=== PATIENT | female | born 1970 | race Caucasian/White ===

== ENCOUNTER 2016-08-10 08:46 | Emergency (ER) | payer BC ==
[2016-08-10] MEDS ORDERED: Ondansetron INJ* 2 MG/ML VIAL IV ONE (09:26)
[2016-08-10] MEDS ORDERED: Ketorolac INJ* 30 MG/ML 1 ML VIAL IV ONE (09:26)
[2016-08-10] MEDS ORDERED: NS 0.9% 1000 ML* 1,000 ML IV ONE (09:26)
--- NOTE | 2016-08-10 09:45 | ED ---
Abdominal Pain/Female - HPI Summary HPI Summary: 46 female presents today with complains of abdominal pain, constipation and feeling ill that began last Wednesday08/03/16. Patient has a history of diverticulitis and was experiencing pain and fevers of 102F last week at onset. 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 She has been taking cipro/flagyl and her last dose of this is tomorrow. Since then she has been trying to continue daily activities, work and take care of her kids while still feeling ill. She has not had a bowel movement since 08/03/16 that she describes as very small "like stones". Her last normal bowel movement before that was approximately 15 days ago. Denies any blood in stool or vomit. She has been vomiting however last episode was Wednesday08/07/16. She has tried using prune juice, prunes, watching her diet, glycerin suppositories without relief. She states she does not even have the urge or pressure to have a bowel movement. She does admit to feeling distended. Majority of her pain is on the right mid abdomen. She realized yesterday the pain began to radiate into her right flank/back. She also has been experiencing urinary frequency and urgency that began yesterday that she took azo urinary relief tabs for, complaining it turned her urine an orange color. Fever today of 100.2F and she took oxycodone this morning around 7am that she is prescribed for her knee without much relief. States she is worried because she has not had any improvement. Admits to passing gas today. Laying in the position and using heating pads gives her some relief. PMHx significant for diverticulitis, hernia repair, cholecystectomy and GERD. Denies difficulty breathing, chest pain and headache. Denies genitalia symptoms, chest pain and difficulty breathing. - History of Current Complaint Chief Complaint: EDAbdPain Stated Complaint: 15DAYS W/OUT BOWEL MOVEMENT Time Seen by Provider: 08/10/16 09:02 Hx Obtained From: Patient Hx Last Menstrual Period: 08/29/14 ?: No Onset/Duration: Gradual Onset, Lasting Weeks, Worse Since Timing: Constant Severity Initially: Moderate Severity Currently: Moderate Pain Intensity: 7 Pain Scale Used: 0-10 Numeric Location: Discrete At: RUQ, Discrete At: RLQ, Suprapubic Radiates: Yes Radiates to: Back - right, Flank - right Character: Sharp, Other: - twisting Aggravating Factor(s): Food, Deep Breaths Alleviating Factor(s): Nothing, Position Associated Signs and Symptoms: Positive: Fever, Back Pain, Constipation, Urinary Symptoms, Decreased Appetite, Nausea, Vomiting. Negative: Blood in Stool, Vaginal Discharge Allergies/Adverse Reactions: Allergies Allergy/AdvReac Type Severity Reaction Status Date / Time Tapentadol [From Nucynta] Allergy Dizziness Verified 06/10/16 10:26 Morphine AdvReac Intermediate Headache Verified 06/10/16 10:26 tylenol with codeine Allergy Intermediate Heart Uncoded 04/16/16 10:29 palpitations, jittery PMH/Surg Hx/FS Hx/Imm Hx GI History: Reports: Hx Hiatal Hernia, Other GI Disorders - Diverticulitis starting 07/2011, now third episode,NONE SINCE Musculoskeletal History: Reports: Hx Arthritis - LEFT KNEE, Other Musculoskeletal History - [place] [facility] [place]atic spasms in back Sensory History: Reports: Hx Contacts or Glasses - GLASSES Denies: Hx Hearing Aid Opthamlomology History: Reports: Hx Contacts or Glasses - GLASSES - Surgical History Surgery Procedure, Year, and Place: LEFT knee surgery; 1996, 1997,. 08/2009 LAP[place]OS[place]IC [place] [facility] [place]2009 DIAGNOSTIC LAPAROSCOPY, POSSIBLE INTUSSCEPTION, [place] [facility] 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2012 [place] [facility] [place] Cholecystectomy. Hernia repair 05/01/2016 Hx Anesthesia Reactions: No Infectious Disease History: No Infectious Disease History: Denies: Hx Clostridium Difficile, Hx Hepatitis, Hx Human Immunodeficiency Virus (HIV), Hx of Known/Suspected MRSA, Hx Shingles, Hx Tuberculosis, Hx Known/ Suspected VRE, Hx Known/Suspected VRSA, History Other Infectious Disease, Traveled Outside the [place] in Last 30 Days - Family History Known Family History: Positive: Cardiac Disease, Other - GI - Social History Alcohol Use: None Substance Use Type: Reports: None Smoking Status (MU): Former Smoker Type: Cigarettes Have You Smoked in the Last Year: No Review of Systems Positive: Fever, Chills Eyes: Negative ENT: Negative Cardiovascular: Negative Respiratory: Negative Positive: Abdominal Pain, Nausea, Other - constipation Positive: burning, dysuria, frequency, urgency. Negative: discharge Musculoskeletal: Negative Skin: Negative Neurological: Negative Psychological: Normal All Other Systems Reviewed And Are Negative: Yes Physical Exam Triage Information Reviewed: Yes Vital Signs On Initial Exam: Initial Vitals Temp Pulse Resp BP Pulse Ox 97.5 F 98 18 149/88 99 08/10/16 08:49 08/10/16 08:49 08/10/16 08:49 08/10/16 08:49 08/10/16 08:49 Vital Signs Reviewed: Yes Appearance: Positive: Well-Nourished, Ill-Appearing, Pain Distress - tearful while taking history/exam Skin: Positive: Warm, Skin Color Reflects Adequate Perfusion, Dry Head/Face: Positive: Normal Head/Face Inspection Eyes: Positive: Normal, Conjunctiva Clear ENT: Positive: Normal ENT inspection, Hearing grossly normal, Pharynx normal, TMs normal Neck: Positive: Supple, Nontender, No Lymphadenopathy Respiratory/Lung Sounds: Positive: Clear to Auscultation, Breath Sounds Present. Negative: Rales, Rhonchi, Wheezes Cardiovascular: Positive: Normal, RRR, Pulses are Symmetrical in both Upper and Lower Extremities Abdomen Description: Positive: No Organomegaly, Soft, CVA Tenderness (R), Distended, Peritoneal Signs, Other: - tender on palpation of RUQ and supra- pubic over bladder. No obivous deformity, megaly, discoloration or ecchymosis. scars noted from previous abdominal surgeries. negative percussion.. Negative: CVA Tenderness (L), Guarding, Hernia @, McBurney's Point Tenderness Bowel Sounds: Positive: Present Pelvic Exam: Positive: external exam normal - per patient. Negative: active bleeding, discharge Musculoskeletal: Positive: Normal, Strength/ROM Intact Neurological: Positive: Normal, Sensory/Motor Intact, Alert, Oriented to Person Place, Time, CN Intact II-III Psychiatric: Positive: Normal, Affect/Mood Appropriate, Anxious Diagnostics - Vital Signs Vital Signs Temp Pulse Resp BP Pulse Ox 08/10/16 08:49 97.5 F 98 18 149/88 99 - Laboratory Result Diagrams: 08/10/16 09:40 08/10/16 09:40 Lab Statement: Any lab studies that have been ordered have been reviewed, and results considered in the medical decision making process. - CT abdomen pelvis CT Interpretation: No Acute Changes CT Interpretation Completed By: Radiologist - NO ACUTE CT FINDINGS. NO MASS OR INFLAMMATORY CHANGE. NORMAL APPENDIX. SCANT DIVERTICULA WITHOUT CT EVIDENCE OF ACUTE DIVERTICULITIS. SMALL LEFT OVARIAN CYST. Re-Evaluation - Re-Evaluation First Eval Re-Evaluation Time: 10:00 Change: Improved - had some pain relief after toradol and relief of nausea from zofran, comfortable however still states there is a dull ache Second Eval Re-Evaluation Time: 12:00 Change: Improved - patient feels the same as after last toradol/zofran. states she is still having pain. another dose toradol ordered. refrained from opiates due to current constipation and possible cause of worsening this issue. also given docusate po to help with constipation. Abdominal Pain Fem Course/Dx - Course Course Of Treatment: Labs, fluid, zofran, toradol and CT obtained. Unremarkable labs and CT results. UA obtained and positive for UTI that is not currently being treated by cipro. given docusate for constipation in ED. patient was feeling better. given laxatives to take at home if she does not have relief of constipation in the next 24-48 hours. also given pain management, and antibiotic w/ pyridium for UTI. Educated how to take medications and on worsening signs and symptoms to watch out for. High fiber diet with plenty of fluids. Urine culture sent. Pain can be cause of constipation and UTI combo. - Diagnoses Differential Diagnosis: Positive: Bowel Obstruction, Constipation, Diverticulitis, Gall Bladder Disease, Pancreatitis, Urinary Tract Infection Provider Diagnoses: Urinary tract infection, Abdominal pain, Constipation Discharge - Discharge Plan Condition: Stable Disposition: HOME Prescriptions: Bisacodyl SUPP* [Dulcolax Supp*] 10 mg PO DAILY #3 supp Docusate CAP* [Colace Cap*] 100 mg PO DAILY #5 cap Ibuprofen TAB* [Motrin TAB* 800 MG] 800 mg PO Q6H #30 tab Phenazopyridine TAB* [Pyridium 100 mg TAB*] 100 mg PO TID #6 tab Sulfamethox/Trimethoprim DS* [Bactrim DS 800/160 TAB*] 1 tab PO BID #10 tab Patient Education Materials: Urinary Tract Infection in Women (ED), Constipation (ED), High Fiber Diet (ED) Forms: *Work Release Referrals: Bety,Jania, EVENT DECORATOR [Primary Care Provider] - Additional Instructions: Take prescribed medication to help with constipation, UTI and pain. Please wait at least 24-48 hours before using more of the constipation medications (Colase and Bisacodyl) as it may take this long for them to take effect. If you still have not had a bowel movement after 48 hours of use you may try using one or the other another time and again wait 24-48hours as we discussed. Take antibiotic and pyridium for UTI until entire dose is finished. The pyridium may make your urine turn an orange color, this is normal. You culture results will be sure that the medication we gave you will cover the specific bacteria. If you develop new or worsening symptoms or high fevers, 105F, please return. REST and continue eating diet in high fiber. Drink plenty of fluids. Follow up with Dr De Jesus and PCP.
[2016-08-10 09:55] LABS: Hematocrit 41 % (35-47); Hemoglobin 13.4 g/dl (12.0-16.0); Mean Corpuscular HGB Conc 33 g/dl (31-36); Mean Corpuscular Hemoglobin 28 pg (27-31); Mean Corpuscular Volume 86 fL (80-97); Mean Platelet Volume 9 um3 (7.4-10.4); Red Blood Count 4.73 10^6/ul (4.0-5.4); Red Cell Distribution Width 15 % (10.5-15); White Blood Count 7.9 10^3/ul (3.5-10.8)
[2016-08-10 10:00] LABS: Urine Bacteria 3+ (Absent); Urine Bilirubin Negative (Negative); Urine Glucose Negative (Negative); Urine Nitrite Positive (Negative)
[2016-08-10 10:17] LABS: ALT 15 U/L (7-52); AST 14 U/L (13-39); Albumin 3.6 g/dL (3.2-5.2); Alkaline Phosphatase 53 U/L (34-104); Anion Gap 8 mmol/L (2-11); BUN/Creatinine Ratio 15.4 (8-20); Blood Urea Nitrogen 14 mg/dL (6-24); C Reactive Protein 9.57 mg/L (< 5.00); CO2 Carbon Dioxide 25 mmol/L (22-32); Calcium 8.7 mg/dL (8.6-10.3); Chloride 104 mmol/L (101-111); EGFR Non-African American 66.9 (>60); Globulin 3.1 g/dL (2-4); Glucose 114 mg/dL (70-100); Lipase 31 U/L (11.0-82.0); Potassium 3.3 mmol/L (3.5-5.0); Sodium 137 mmol/L (133-145); Total Protein 6.7 g/dL (6.4-8.9)
[2016-08-10] MEDS ORDERED: Iohexol 300* (CONTRAST) 10 ML SDV IV ONE (10:36)
--- NOTE | 2016-08-10 11:53 | RAD ---
INDICATION: Abdominal pain COMPARISON: CT abdomen and pelvis July 20, 2013 TECHNIQUE: Axial source images were obtained from the hemidiaphragms to the symphysis pubis following administration of oral and intravenous contrast. 136 mL Omnipaque 300 was utilized. Coronal and sagittal reconstructed images were acquired. Lung bases: The lung bases are clear. Liver: The liver is normal in size. There are no masses. There is no ductal dilatation. Gallbladder: Cholecystectomy. Spleen: The spleen is normal in size. There are no masses. Pancreas: There is no focal pancreatic mass or ductal dilatation. Adrenal glands: There is no evidence of adrenal mass. Kidneys: The kidneys are normal in size and position. There are prompt nephrograms and there is prompt excretion bilaterally. There are no renal parenchymal masses. There is no evidence of nephrolithiasis. Adenopathy: There is no evidence of adenopathy by size criteria. Fluid collections: There are no free or localized fluid collections. Vessels:There are no significant atherosclerotic changes involving the aorta. There is no focal aneurysm. The iliac vessels are normal in caliber. The IVC appears normal. GI tract: There is a moderate-sized hiatal hernia. The upper GI tract is otherwise unremarkable. The terminal ileum, cecum, and appendix are normal. There is moderate stool throughout the colon there are scant diverticula. There is no CT evidence of acute diverticulitis Pelvic organs: The uterus and right adnexa appear normal. There is a 1.7 cm left ovarian cyst. Bladder: There are no bladder masses. Abdominal and pelvic soft tissues: There is diastases of the rectus musculature.. Osseous structures: There are no acute osseous findings. Other: None IMPRESSION: NO ACUTE CT FINDINGS. NO MASS OR INFLAMMATORY CHANGE. NORMAL APPENDIX. SCANT DIVERTICULA WITHOUT CT EVIDENCE OF ACUTE DIVERTICULITIS. SMALL LEFT OVARIAN CYST.
[2016-08-10] MEDS ORDERED: Ketorolac INJ* 30 MG/ML 1 ML VIAL IV PUSH PRN (12:02)
[2016-08-10] MEDS ORDERED: Docusate CAP* 100 MG PO ONE (12:08)
[2016-08-10 12:55] VITALS: BP 118/72
== END 2016-08-10 12:54 | disposition home or self-care (01) ==
LOC: ED 08:46
DX: K59.00 Constipation, unspecified (principal); R10.31 Right lower quadrant pain; N39.0 Urinary tract infection, site not specified; Z87.891 Personal history of nicotine dependence
CPT/HCPCS: 36415; 74177; 80053; 81003; 81015; 83605; 83690; 84702; 85025; 86140; 87086; 96374; 96375; 99282; J1885; J2405; Q9967